=== PATIENT | female | born 1965 | race Caucasian/White ===

== ENCOUNTER 2016-10-28 21:31 | Emergency (ER) | payer BC | END 2016-10-29 00:54 | disposition home or self-care (01) | LOC: ER 21:31 | DX: S29.012A Strain of muscle and tendon of back wall of thorax, initial encounter (principal); M25.522 Pain in left elbow; M79.644 Pain in right finger(s); F41.9 Anxiety disorder, unspecified; Z88.5 Allergy status to narcotic agent; Z88.1 Allergy status to other antibiotic agents; W01.0XXA Fall on same level from slipping, tripping and stumbling without subsequent striking against object, initial encounter | CPT/HCPCS: 73080-LT; 73140-RT; 96372; 99284; A9270-GY; J2360 ==